=== PATIENT | female | born 2000 | race Caucasian/White ===

== ENCOUNTER 2021-11-16 10:02 | Emergency (ER) | payer OTHER, SELFPAY ==
--- NOTE | 2021-11-16 10:11 | ED.URI ---
HPI - URI/Sore Throat General Chief Complaint: Upper Respiratory Infection Stated Complaint: sorethroat Time Seen by Provider: 11/16/21 10:11 Source: patient and RN notes reviewed Mode of arrival: ambulatory Limitations: no limitations History of Present Illness HPI Narrative: 21-year-old female presents to the [facility] with complaints of a sore throat since yesterday. Has taken allergy medication. Denies any upper respiratory issues. No chest pain or abdominal pain. Denies fevers. MD elicited complaint: sore throat Related Data Home Medications Medication Instructions Recorded Confirmed cetirizine 10 mg tablet 10 mg DAILY 11/16/21 11/16/21 dextroamphetamine-amphetamine ER 5 5 mg PO DAILY 11/16/21 11/16/21 mg 24hr capsule,extend release norgestimate 0.25 mg-ethinyl 1 tablet DAILY 11/16/21 11/16/21 estradiol 35 mcg tablet (Estarylla) paroxetine HCl 20 mg tablet 20 mg PO DAILY 11/16/21 11/16/21 Allergies Allergy/AdvReac Type Severity Reaction Status Date / Time No Known Allergies Allergy Verified 11/16/21 10:21 Review of Systems Review of Systems: All systems reviewed & are unremarkable except as noted in HPI and below Constitutional: Constitutional: Reports no additional constitutional complaints, Denies chills and Denies fever(s) Eyes: Eyes: Reports no additional eye complaints ENT: Reports as per HPI and Reports sore throat Cardiovascular: Cardiovascular: Reports no additional cardiovascular complaints Respiratory: Respiratory: Reports no additional respiratory complaints Gastrointestinal: Gastrointestinal: Reports no additional gastrointestinal complaints Musculoskeletal: Musculoskeletal: Reports no additional musculoskeletal complaints Integumentary/Breasts: Skin/Breast: Reports system reviewed and no additional complaints, except as docu Neurologic: Reports system reviewed and no additional complaints, except as documented Psychiatric: Psychiatric: Reports no additional psychiatric complaints Allergic/Immunologic: Allergic/Immunologic: Reports no additional allergic/immunologic complaints PMFSH Past Medical History Medical History (Updated 11/16/21 @ 10:34 by Farnaz Salvador APRN) Anxiety and depression Surgical History Surgical History (Updated 11/16/21 @ 10:21 by Farnaz Salvador APRN) No pertinent past surgical history Social History Social History (Updated 11/16/21 @ 10:21 by Farnaz Salvador APRN) Gender identity (if verbalized by the patient): Female Comments At the time of my signature, I reviewed and agree with the nursing past medical, surgical, social, and family history. There is no relevant family history pertinent to the patient complaint. Exam Const: General: healthy appearing, no acute distress and alert Nutritional Appearance: well nourished and obese Orientation/consciousness: patient oriented x3 Limitations: no limitations HENMT: Head: normal to inspection Ears: external ears normal, TM's normal bilaterally and EAC's normal General nose exam: Normal external nose present and Normal nares present Face and sinus: normal facial exam Mouth: Yes Normal oral and palatal mucosa present, Yes lip normal and Yes moist mucous membranes Throat: posterior oropharynx normal, tonsils normal and uvula midline Eyes: General: appearance normal, both eyes and all related structures Conjunctivae: conjunctivae normal Pupils: Equal, round and reactive pupils present Neck: Neck: normal visual inspection, no lymphadenopathy and no meningeal signs Chest: Chest palpation & inspection: normal inspection of the chest Resp: Effort & Inspection: normal respiratory effort and no use of accessory muscles Auscultation: clear to auscultation bilaterally, no crackles, no rales, no rhonchi and no wheezes Cardio: Rate: regular rate Rhythm: regular rhythm Skin: General skin exam: normal color Rashes: no rashes Wounds: no wounds Neuro: General: patient oriented x3, moves all
[2021-11-16 10:15] VITALS: BP 139/86; PULSE 110; RESP 18; TEMP 36.6; O2SAT 98
== END 2021-11-16 10:37 | disposition home or self-care (01) ==
PROVIDERS: Emergency Provider Nurse Practitioner; PCP Family Medicine
DX: J02.8 Acute pharyngitis due to other specified organisms (principal); F41.9 Anxiety disorder, unspecified; F32.A Depression, unspecified
CPT/HCPCS: 87081; 87880; 99213; G0463

== ENCOUNTER 2022-02-25 12:48 | Emergency (ER) | payer OTHER, SELFPAY ==
[2022-02-25 13:00] VITALS: BP 132/76; PULSE 79; RESP 18; TEMP 36.4; O2SAT 100
--- NOTE | 2022-02-25 13:01 | ED.URI ---
HPI - URI/Sore Throat General Chief Complaint: Upper Respiratory Infection Stated Complaint: cough Time Seen by Provider: 02/25/22 13:10 Source: patient and RN notes reviewed Mode of arrival: ambulatory Limitations: no limitations History of Present Illness HPI Narrative: 21 y/o female presented for c/o cough and scratchy throat for over 10 days. Endorses sinus symptoms have improved since the onset. She had negative home covid tests. Taking Delsym, dayquil and nyquil. Denies sob, wheezing, n/v/d/f/c. MD elicited complaint: cough Related Data Home Medications Medication Instructions Recorded Confirmed cetirizine 10 mg tablet 10 mg DAILY 11/16/21 02/25/22 dextroamphetamine-amphetamine ER 5 5 mg PO DAILY 11/16/21 02/25/22 mg 24hr capsule,extend release norgestimate 0.25 mg-ethinyl 1 tablet DAILY 11/16/21 02/25/22 estradiol 35 mcg tablet (Estarylla) paroxetine HCl 20 mg tablet 20 mg PO DAILY 11/16/21 02/25/22 topiramate 25 mg tablet 25 mg PO DAILY 02/25/22 02/25/22 Allergies Allergy/AdvReac Type Severity Reaction Status Date / Time No Known Allergies Allergy Verified 02/25/22 13:01 Review of Systems Review of Systems: CONSTITUTIONAL:Denies malaise, chills, sweats, fever EYES: Denies visual changes, redness, or discharge ENT: Denies rhinorrhea, congestion, sinus pain, otalgia, sore throat CARDIOVASCULAR: Denies chest pain, palpitations, edema RESPIRATORY: Reports cough Denies dyspnea GASTROINTESTINAL: Denies abdominal pain, nausea, vomiting, diarrhea SKIN: Denies rash or itching MUSCULOSKELETAL: Denies myalgia NEUROLOGIC: Denies headache PMFSH Past Medical History Medical History Anxiety and depression Surgical History Surgical History No pertinent past surgical history Social History Social History Gender identity (if verbalized by the patient): Female Exam Narrative: GENERAL: well-appearing EYES: PERRLA, conjunctivae clear ENT: Mucous membranes moist. TMs pearly rascon with dull light reflex bilaterally; no tragal tenderness. Oropharynx erythematous without lesions or exudate CHEST: Clear to auscultation, breath sounds equal. No wheezing, rhonchi, rales, or stridor. No respiratory distress, speaks in full sentences. HEART: Regular rate and rhythm. No murmur heard. SKIN: Warm, dry, no rash. NEURO: Alert and oriented x3. PSYCH: Normal mood and affect Course Course Emergency Course: Patient is aware of diagnosis, understands and agrees to treatment plan. Anticipatory guidance given. Patient agrees to follow-up as directed and is aware of reasons to seek care at the emergency department. Portions of this record may have been created with voice recognition software Level of Care: Express Care Visit Vital Signs Vital signs: Vital Signs Temperature 97.6 F 02/25/22 13:00 Pulse Rate 79 02/25/22 13:00 Respiratory Rate 18 02/25/22 13:00 Blood Pressure 132/76 02/25/22 13:00 Pulse Oximetry 100 02/25/22 13:00 Oxygen Delivery Room Air 02/25/22 13:00 Temperature 97.6 F 02/25/22 13:00 Pulse Rate 79 02/25/22 13:00 Respiratory Rate 18 02/25/22 13:00 Blood Pressure 132/76 02/25/22 13:00 Pulse Oximetry 100 02/25/22 13:00 Oxygen Delivery Room Air 02/25/22 13:00 reviewed MDM - URI/Sore Throat MDM Narrative Medical decision making narrative: Advised supportive measures and signs/symptoms to go to the ER. Pt is appropriate for outpt treatment and f/u. Differential Diagnosis Differential diagnosis: Likely upper respiratory infection, sinusitis, viral infection and bronchitis Discharge Plan Discharge Clinical Impression: Viral infection Patient Disposition: Home, Self-Care Condition: Stable Instructions: Antibiotic Form, Acute Cough (ED) Additional Instructions: Recommend Fl
== END 2022-02-25 13:21 | disposition home or self-care (01) ==
PROVIDERS: Emergency Provider Nurse Practitioner Family; PCP Family Medicine
DX: B34.9 Viral infection, unspecified (principal); F41.9 Anxiety disorder, unspecified; F32.A Depression, unspecified
CPT/HCPCS: 99213; G0463

== ENCOUNTER 2022-04-20 18:36 | Emergency (ER) | payer OTHER, SELFPAY ==
[2022-04-20 18:45] VITALS: BP 131/81; PULSE 93; RESP 16; TEMP 36.3; O2SAT 99
--- NOTE | 2022-04-20 19:26 | ED.DENTAL ---
HPI - Dental/Oral General Chief complaint: Dental/Oral Stated complaint: Decreased facial movement after dental work Time Seen by Provider: 04/20/22 19:20 Source: patient Mode of arrival: ambulatory Limitations: no limitations History of Present Illness HPI Narrative: Patient presents today concerned that she does not have full facial movement back after she had a filling placed in her left upper posterior to this around 330pm today at her dentist office. States the sensation has returned into denies any pain, but is concerned that she cannot yet move the left side of her face fully. Her dentist office is closed tomorrow and does not have anyone on-call. She denies any shortness of breath, difficulty swallowing. Related Data Home Medications Medication Instructions Recorded Confirmed cetirizine 10 mg tablet 10 mg DAILY 11/16/21 04/20/22 dextroamphetamine-amphetamine ER 5 5 mg PO DAILY 11/16/21 04/20/22 mg 24hr capsule,extend release norgestimate 0.25 mg-ethinyl 1 tablet DAILY 11/16/21 04/20/22 estradiol 35 mcg tablet (Estarylla) paroxetine HCl 20 mg tablet 20 mg PO DAILY 11/16/21 04/20/22 topiramate 25 mg tablet 25 mg PO DAILY 02/25/22 04/20/22 Allergies Allergy/AdvReac Type Severity Reaction Status Date / Time No Known Allergies Allergy Verified 04/20/22 18:54 Review of Systems Review of Systems: CONSTITUTIONAL: Denies body aches, fever, chills, or sweats. EYES: Denies visual changes, redness, or discharge. ENT: Denies rhinorrhea, congestion, sore throat, or otalgia.+ decreased facial movement CARDIOVASCULAR: Denies chest pain, palpitations, or edema. RESPIRATORY: Denies cough or dyspnea. GASTROINTESTINAL: Denies abdominal pain, nausea, vomiting, or diarrhea. GENITOURINARY: Denies dysuria or hematuria. SKIN: Denies rash, itching, or wounds. MUSCULOSKELETAL: Denies back pain, joint pain, or myalgia. NEUROLOGIC: Denies headache, numbness, tingling, or weakness. PSYCH: Denies depression or anxiety. [facility] Past Medical History Medical History Anxiety and depression Surgical History Surgical History No pertinent past surgical history Social History Social History Gender identity (if verbalized by the patient): Female Comments At time of signature, I have reviewed and agree with nursing past medical, surgical, social and family history unless otherwise noted. Please see nursing chart for further information. There is no relevant family history pertinent to the presenting complaint Exam Narrative: GENERAL: Well-appearing, well-nourished, and in no acute distress. HEAD: Normocephalic, atraumatic. EYES: EOMI. No redness or drainage. Conjunctivae normal. ENT: Mucous membranes pink and moist. Tongue is midline. Patient has full sensation to her left face and lips. At this time she does have some left sided facial paralysis. No drooling. Talking normally. NECK: Normal AROM. CHEST: No respiratory distress. EXTREMITIES: Normal range of motion. No edema. SKIN: Warm, dry, no rash. Capillary refill normal. Normal skin turgor. NEURO: Alert and oriented x3. Gait steady. PSYCH: Normal affect. No signs of depression or anxiety. Course Course Level of Care: Express Care Visit Vital Signs Vital signs: Vital Signs Temperature 97.4 F L 04/20/22 18:45 Pulse Rate 93 04/20/22 18:45 Respiratory Rate 16 04/20/22 18:45 Blood Pressure 131/81 04/20/22 18:45 Pulse Oximetry 99 04/20/22 18:45 Oxygen Delivery Room Air 04/20/22 18:45 Temperature 97.4 F L 04/20/22 18:45 Pulse Rate 93 04/20/22 18:45 Respiratory Rate 16 04/20/22 18:45 Blood Pressure 131/81 04/20/22 18:45 Pulse Oximetry 99 04/20/22 18:45 Oxygen Delivery Room Air 04/20/22 18:45 Reviewed. Pt has been instructed to follow up
== END 2022-04-20 19:37 | disposition home or self-care (01) ==
PROVIDERS: Emergency Provider Nurse Practitioner; PCP Family Medicine
DX: R29.810 Facial weakness (principal); Z98.811 Dental restoration status
CPT/HCPCS: 99211; G0463

== ENCOUNTER 2023-06-29 16:35 | Emergency (ER) | payer OTHER, SELFPAY ==
[2023-06-29 16:54] VITALS: BP 130/73; PULSE 100; RESP 18; TEMP 36.4; O2SAT 100
--- NOTE | 2023-06-29 17:00 | ED.URI ---
HPI - URI/Sore Throat General Chief Complaint: Upper Respiratory Infection Stated Complaint: Sore Throat Time Seen by Provider: 06/29/23 17:01 Source: patient Mode of arrival: ambulatory Limitations: no limitations History of Present Illness HPI Narrative: 22 year old female who presents to [facility] care with complaints of having sore throat since this morning which has progressed to painful swallowing as day has progressed. Patient denies any headaches, fevers, ear pain or cough. Patient admits to having some seasonal allergies and takes daily Zyrtec. MD elicited complaint: sore throat Pertinent past history: seasonal allergies Onset (ago): day(s) (today) Pain scale (0-10): 6 Able to tolerate fluids by mouth: Yes Treatments prior to arrival: none and other (takes daily allergy pill) Related Data Home Medications Medication Instructions Recorded Confirmed cetirizine 10 mg tablet 10 mg DAILY 11/16/21 06/29/23 paroxetine HCl 20 mg tablet 20 mg PO DAILY 11/16/21 06/29/23 Allergies Allergy/AdvReac Type Severity Reaction Status Date / Time No Known Allergies Allergy Verified 06/29/23 16:58 Review of Systems Review of Systems: CONSTITUTIONAL: Denies malaise, chills, sweats, or fever. EYES: Denies visual changes, redness, or discharge. ENT: Reports rhinorrhea, congestion,no sinus pain, no otalgia and positive for sore throat. CARDIOVASCULAR: Denies chest pain, palpitations, or edema. RESPIRATORY: Reports no cough.? Denies dyspnea. GASTROINTESTINAL: Denies abdominal pain, nausea, vomiting, diarrhea SKIN: Denies rash or itching. MUSCULOSKELETAL: Denies myalgia. NEUROLOGIC: Denies headache. All systems reviewed & are unremarkable except as noted in HPI and below [facility] Past Medical History Medical History (Updated 07/01/23 @ 10:48 by Krystal Rosen NP) ADHD (attention deficit hyperactivity disorder) Anxiety and depression Asthma exercise induced Seasonal allergies Surgical History Surgical History No pertinent past surgical history Social History Social History Gender identity (if verbalized by the patient): Female Comments At time of signature, agree with nursing past medical, surgical, social and family history. There is no relevant family history pertinent to the presenting complaint Exam Narrative: GENERAL: Well-appearing, well-nourished, and in no acute distress. HEAD: Normocephalic EYES: PERRLA, conjunctivae clear ENT: Nares clear, turbinates edematous and erythematous, clear discharge. Mucous membranes moist. TM pearly rascon with dull light reflex bilaterally; no tragal tenderness. Oropharynx erythematous without lesions. Tonsils not enlarged and without exudate, no drooling, no hoarseness, no trismus, uvula midline.post nasal drainage NECK: Supple. No lymphadenopathy CHEST: Clear to auscultation, breath sounds equal. No wheezing, rhonchi, rales, or stridor. No respiratory distress, speaks in full sentences.SAO2 100% on room air HEART: Regular rate and rhythm. No murmur heard. SKIN: Warm, dry, no rash. NEURO: Alert and oriented x3. PSYCH: Normal mood and affect Course Course Emergency Course: Patient is aware of diagnosis, understands and agrees to treatment plan.? Anticipatory guidance given.? Patient agrees to follow-up as directed and is aware of reasons to seek care at the emergency department. Portions of this record may have been created with voice recognition software Level of Care: Express Care Visit Vital Signs Vital signs: Vital Signs Temperature 36.4 C 06/29/23 16:54 Pulse Rate 100 06/29/23 16:54 Respiratory Rate 18 06/29/23 16:54 Blood Pressure 130/73 06/29/23 16:54 Pulse Oximetry 100 06/29/23 16:54 Oxygen Delivery Room Air 06/29/23 16:54 Temperature 36.4 C 06/29/23 16:54 Pulse Rate 100
== END 2023-06-29 17:38 | disposition home or self-care (01) ==
PROVIDERS: Emergency Provider Registered Nurse; PCP Family Medicine
DX: J02.9 Acute pharyngitis, unspecified (principal); J31.0 Chronic rhinitis; F41.9 Anxiety disorder, unspecified; F32.A Depression, unspecified; J45.990 Exercise induced bronchospasm
CPT/HCPCS: 87081; 87880; 99213; G0463

== ENCOUNTER 2023-12-05 11:54 | Emergency (ER) | payer OTHER, SELFPAY ==
[2023-12-05 12:03] VITALS: BP 129/69; PULSE 52; RESP 16; TEMP 36.4; O2SAT 100
[2023-12-05 12:07] VITALS: BP 129/69; PULSE 52; RESP 16; TEMP 36.4; O2SAT 100
--- NOTE | 2023-12-05 12:09 | ED.HA ---
HPI - Headache General Chief Complaint: Headache Stated Complaint: headache Time Seen by Provider: 12/05/23 12:09 Mode of arrival: ambulatory Limitations: no limitations History of Present Illness HPI Narrative: 23-year-old female presents with concern for headache for 24 hours. Reports it started gradual in the got worse. Reports that is constant and dull in the frontal area and in the posterior head. She denies any injury or trauma. She denies nausea or vomiting. She reports light sensitivity and sensitivity to some sounds. She reports she has taken Tylenol once and has been taking 600 mg ibuprofen every 6 hours. She denies weakness in any extremity, trouble speaking, trouble swallowing. Patient has an IUD, denies chance of MD elicited complaint: headache Related Data Home Medications Medication Instructions Recorded Confirmed cetirizine 10 mg tablet 10 mg DAILY 11/16/21 12/05/23 budesonide-formoterol HFA 80 1 inh inhalation DIRECTED 12/05/23 12/05/23 mcg-4.5 mcg/actuation aerosol inhaler Allergies Allergy/AdvReac Type Severity Reaction Status Date / Time No Known Allergies Allergy Verified 06/29/23 16:58 Review of Systems Review of Systems: CONSTITUTIONAL: Denies malaise, chills, sweats, or fever. EYES: Denies visual changes ENT: Denies rhinorrhea, congestion, sinus pain, otalgia or sore throat. CARDIOVASCULAR: Denies chest pain, palpitations, or edema. RESPIRATORY: Denies cough or dyspnea. GASTROINTESTINAL: Denies nausea, vomiting. MUSCULOSKELETAL: Denies back pain, joint pain, or myalgia. NEUROLOGIC: Denies numbness, weakness. Reports headache. All systems reviewed & are unremarkable except as noted in HPI and below PMFSH Past Medical History Medical History (Updated 12/05/23 @ 12:25 by Farnaz Romo NP) ADHD (attention deficit hyperactivity disorder) Anxiety and depression Asthma exercise induced Seasonal allergies Surgical History Surgical History No pertinent past surgical history Social History Social History Gender identity (if verbalized by the patient): Female Comments At time of signature, agree with nursing past medical, surgical, social and family history. There is no relevant family history pertinent to the presenting complaint Exam Narrative: GENERAL: Well-appearing, well-nourished, and in no acute distress. HEAD: Normocephalic, atraumatic. EYES: PERRLA, sclera clear, and EOMI. No nystagmus. ENT: Nares clear. Mucous membranes moist. NECK: Supple. No lymphadenopathy. No jugular venous distension, thyromegaly, or carotid bruits. Carotids were easily palpable bilaterally. CHEST: No respiratory distress. Speaks in full sentences. HEART: Regular rate and rhythm. No murmur heard. Normal peripheral pulses. EXTREMITIES: Normal range of motion. No edema. Normal strength and sensation. SKIN: Warm, dry, no visible rash. NEURO: Alert and oriented x3. No focal deficits. Cranial nerves II through XII grossly intact PSYCH: Normal mood and affect Course Course Emergency Course: Patient is aware of diagnosis, understands and agrees to treatment plan. Anticipatory guidance given. Patient agrees to follow-up as directed and is aware of reasons to seek care at the emergency department. Portions of this record may have been created with voice recognition software Level of Care: Express Care Visit Vital Signs Vital signs: Vital Signs Temperature 97.6 F 12/05/23 12:03 Pulse Rate 52 L 12/05/23 12:03 Respiratory Rate 16 12/05/23 12:03 Blood Pressure 129/69 12/05/23 12:03 Pulse Oximetry 100 12/05/23 12:03 Oxygen Delivery Room Air 12/05/23 12:03 Temperature 97.6 F 12/05/23 12:07 Pulse Rate 52 L 12/05/23 12:07 Respiratory Rate 16 12/05/23 12:07 Blood Pressure 129/69 12/05/23 12:07 Pulse Oximetry 100 12/05/23
[2023-12-05] MEDS: KETOROLAC (*BKC) 60 MG/2 ML VIAL IM (12:18)
== END 2023-12-05 12:45 | disposition home or self-care (01) ==
PROVIDERS: Emergency Provider Nurse Practitioner; PCP Family Medicine
DX: R51.9 Headache, unspecified (principal); J45.909 Unspecified asthma, uncomplicated
CPT/HCPCS: 96372; 99213; G0463; J1885